=== PATIENT | female | born 1975 | race African-American/Black ===

== ENCOUNTER → 2018-08-20 | Outpatient (CLI) | payer OTHER ==
--- NOTE | 2018-08-20 11:15 | RAD ---
Indication:Dysfunctional uterine bleeding TECHNIQUE: Grayscale, color Doppler and spectral waveform images of the pelvis obtained. COMPARISON: None FINDINGS: Uterus is anteverted and measures 11.4 x 4.3 x 5.9 cm (longitudinal, AP, transverse). Endometrial stripe measures 1 cm and is within normal limits. 2.6 x 2.6 x 3.6 cm isoechoic masslike lesion is seen in the posterior uterine body most likely a fibroid. Left ovary measures 2.6 x 3.5 x 3.2 cm with a single septated anechoic lesion measuring 1.7 x 1.0 x 1.5 cm likely minimally complicated cyst. Left ovary shows blood flow. Right ovary measures 1.5 x 2.5 x 2.4 cm and shows blood flow. Trace amount of free pelvic fluid. IMPRESSION: 1. Posterior uterine body fibroid. 2. Endometrial stripe measures 1 cm in thickness. Electronically signed by: Matt Mena DO (08/20/2018 11:13 AM) [id number]
== END | disposition home or self-care (01) ==
LOC: US 09:46
PROVIDERS: ATTEND Nurse Practitioner Family
DX: D25.9 Leiomyoma of uterus, unspecified (principal)
CPT/HCPCS: 76830; 76856

== ENCOUNTER 2020-10-08 20:38 | Emergency (ER) | payer OTHER ==
[~2020-10-08] VITALS: Ht 162.6 cm; Wt 120.0 kg
[2020-10-08 20:38] VITALS: BP 168/80
--- NOTE | 2020-10-08 21:29 | PHYS DOC ---
Past History Past Medical History: No Pertinent History Past Surgical History: Tubal ligation, Other Smoking: Non-smoker Alcohol Use: None Drug Use: None Adult General Chief Complaint Chief Complaint: FLANK PAIN HPI HPI Patient is a 45-year-old female with a past medical history significant for renal stones who presents with a chief complaint of flank pain. States that it started earlier in the day, is sharp in nature, 7 out of 10 with no radiation and no associated nausea or vomiting. Denies any recent illnesses, fevers, chest pain, shortness of breath dysuria, hematuria or blood in the stool. Review of Systems Review of Systems Review of systems otherwise unremarkable except noted in HPI Allergies Allergies Allergies Coded Allergies Type Severity Reaction Last Updated Verified No Known Drug Allergies 11/01/13 No Physical Exam Physical Exam Constitutional: Well developed, well nourished, no acute distress, non-toxic appearance. [] HENT: Normocephalic, atraumatic, bilateral external ears normal, oropharynx moist, no oral exudates, nose normal. [] Cardiovascular:Heart rate regular rhythm, no murmur [] Lungs & Thorax: Bilateral breath sounds clear to auscultation [] Abdomen: Bowel sounds normal, soft, no tenderness, no masses, no pulsatile masses. [] Skin: Warm, dry, no erythema, no rash. [] Back: No tenderness, no CVA tenderness. [] Extremities: No tenderness, no cyanosis, no clubbing, ROM intact, no edema. [] Neurologic: Alert and oriented X 3, normal motor function, normal sensory function, no focal deficits noted. [] Psychologic: Affect normal, judgement normal, mood normal. [] EKG EKG [] Radiology/Procedures Radiology/Procedures []Exam: CT of abdomen and pelvis without contrast INDICATION: Flank pain TECHNIQUE: Sequential axial images through the abdomen and pelvis obtained wit hout IV contrast. Sagittal and coronal reformatted images were reconstructed from the axial data and reviewed. Comparisons: None FINDINGS: Heart size is normal. No pericardial effusion. Visualized lung bases are clear. No pleural effusion. Evaluation of solid organs is limited secondary to noncontrast technique. Liver, spleen, pancreas, gallbladder and adrenals are unremarkable. No perinephric inflammation. Mild left-sided hydronephrosis. No renal or ureteral calculi are identified. Bladder is decompressed not well evaluated. Uterus is not enlarged. No abnormal adnexal mass. Large and small bowel are unremarkable. Appendix is normal. No free abdominal air or fluid. No obstruction. Abdominal aorta has a normal course and caliber. No enlarged intra-abdominal lymph nodes are identified. No suspicious osseous lesions or acute fractures. IMPRESSION: 1. Mild left-sided hydronephrosis and hydroureter without obstructing stone or lesion identified. Findings could relate to stricture. 2. No renal or ureteral calculi. No evidence for obstructive uropathy. Heart Score C/O Chest Pain: No Risk Factors: Risk Factors: DM, Current or recent (<one month) smoker, HTN, HLP, family history of CAD, obesity. Risk Scores: Risk Factors: DM, Current or recent (<one month) smoker, HTN, HLP, family history of CAD, obesity. Course & Med Decision Making Course & Med Decision Making Patient is a 45-year-old female who presents with flank pain Vital signs not concerning. Physical exam noted above. Laboratory analysis notable for hematuria. CT notable for mild hydronephrosis/hydroureter without stone noted. Discussed all findings with patient including chronic urinary issues such as stricture versus a passed kidney stone. Advised on pain control at home. Advised to follow-up first thing tomorrow with primary care physician and discussed the need for urology follow-up. Gave strict return precautions to the ED. Patient grateful, verbalized understanding and agreed with plan of discharge. [] Dragon Disclaimer Dragon Disclaimer This electronic medical record was generated, in whole or in part, using a voice recognition dictation system. Departure Departure: Impression: Primary Impression: Flank pain Additional Impressions: Hydronephrosis Hematuria Urinary tract infection Disposition: 01 DC HOME SELF CARE/HOMELESS Condition: GOOD Referrals: KEYUR CUETO (PCP) Patient Instructions: Hematuria, Adult, Hydronephrosis Additional Instructions: Please read all of the attached information. Your laboratory analysis was not concerning. Your urinalysis had some blood in your CAT scan did not show any obstructing kidney stones but did show evidence of possible urinary stricture or possibly a passed stone. Please call your primary care physician first thing in the morning to discuss your ED visit and set up a follow-up as soon as you can with them, preferably this week and discussed the need for a urology consult. Please come back to the ED with new or concerning symptoms as discussed. Scripts Nitrofurantoin Monohyd/M-Cryst (MACROBID 100 MG CAPSULE) 100 Mg Capsule 1 CAP PO BID for UTI for 7 Days, #14 CAP 0 Refills Prov: ZAYDA SHAH MD 10/08/20 Cephalexin (CEPHALEXIN) 500 Mg Capsule 1 CAP PO BID for UTI for 5 Days, #10 CAP Prov: ZAYDA SHAH MD 10/08/20 Problem Qualifiers ZAYDA SHAH MD Oct 08, 2020 21:29
[2020-10-08 21:46] LABS: HEMOGLOBIN 10.2 g/dL (12.0-15.5); RED BLOOD COUNT 4.05 x10^6/uL (3.50-5.40); RED CELL DISTRIBUTION WIDTH 16.8 % (11.5-14.5); WHITE BLOOD COUNT 7.2 x10^3/uL (4.0-11.0)
[2020-10-08 21:49] LABS: CALCIUM 8.5 mg/dL (8.5-10.1); CREATININE 0.8 mg/dL (0.6-1.0); GFR 94.7; POTASSIUM 3.5 mmol/L (3.5-5.1)
[2020-10-08 21:58] LABS: BILIRUBIN,URINE NEG (NEG); CLARITY,URINE HAZY; COLOR,URINE YELLOW; GLUCOSE,URINE NEG (NEG)
[2020-10-08 21:59] LABS: BACTERIA,URINE FEW /HPF (0-FEW); NITRITE,URINE NEG (NEG); SQUAMOUS EPITHELIAL CELL,UR FEW /LPF; UROBILINOGEN,URINE 0.2 mg/dL (0.2 mg/dL); WBC,URINE OCC /HPF (0-4)
--- NOTE | 2020-10-08 22:44 | RAD ---
Exam: CT of abdomen and pelvis without contrast INDICATION: Flank pain TECHNIQUE: Sequential axial images through the abdomen and pelvis obtained without IV contrast. Sagit deana and coronal reformatted images were reconstructed from the axial data and reviewed. Comparisons: None FINDINGS: Heart size is normal. No pericardial effusion. Visualized lung bases are clear. No pleural effusion. Evaluation of solid organs is limited secondary to noncontrast technique. Liver, spleen, pancreas, gallbladder and adrenals are unremarkable. No perinephric inflammation. Mild left-sided hydronephrosis. No renal or ureteral calculi are identif ied. Bladder is decompressed not well evaluated. Uterus is not enlarged. No abnormal adnexal mass. Large and small bowel are unremarkable. Appendix is normal. No free abdominal air or fluid. No obstru ction. Abdominal aorta has a normal course and caliber. No enlarged intra-abdominal lymph nodes are identified. No suspicious osseous lesions or acute fractures. IMPRESSION: 1. Mild left-sided hydronephrosis and hydroureter without obstructing stone or lesion identified. Fi ndings could relate to stricture. 2. No renal or ureteral calculi. No evidence for obstructive uropathy. Exposure: One or more of the following in the visualized dose reduction techniques were utilized for this examination: 1. Automated exposure control 2. Adjustment of the MA and/or KV according to patient size 3. Use of iterative of reconstructive technique Electronically signed by: Hue Schroeder MD (10/08/2020 10:42 PM) [facility]
[2020-10-08] MEDS ORDERED: CEPH500C PO (22:54)
[2020-10-08] MEDS ORDERED: NITR100C62 PO (23:03)
[2020-10-08] MEDS ORDERED: NITROFURANTOIN MONOHYD/M-CRYST 100 MG CAPSULE. PO ONE (23:30)
[2020-10-08] MEDS ORDERED: CEPHALEXIN 250 MG CAPSULE PO ONE (23:30)
== END 2020-10-08 23:08 | disposition home or self-care (01) ==
LOC: ER 20:38
DX: N39.0 Urinary tract infection, site not specified (principal); N13.30 Unspecified hydronephrosis; Z98.51 Tubal ligation status
CPT/HCPCS: 36415; 74176; 80048; 81001; 85027; 99284-25

== ENCOUNTER 2021-05-24 15:42 | Emergency (ER) | payer OTHER ==
[~2021-05-24] VITALS: Ht 162.6 cm; Wt 120.0 kg
[~2021-05-24 15:42] MED LIST: CEPH500C PO; NITR100C62 PO
[2021-05-24 15:59] VITALS: BP 185/105
--- NOTE | 2021-05-24 17:17 | PHYS DOC ---
Past History Past Medical History: Kidney Stones Additional Past Medical Histor: graves disease; anemia (VAISHALI BOLIVAR APRN) Past Surgical History: Tubal ligation, Other (VAISHALI BOLIVAR APRN) Smoking: Non-smoker Alcohol Use: None Drug Use: None (VAISHALI BOLIVAR APRN) General Adult EDM: Chief Complaint: NOSEBLEED HPI: HPI: Patient is a 45-year-old female who presents with nosebleed that started as afternoon. Patient denies any known trauma. Patient denies being on any blood thinners. Bleeding was controlled once arrived in the ER. Patient is reporting she feels weak. Patient is supposed to be been seen this week for possible infusions due to iron deficiency. Patient sees Dr. Blevins. Denies pain. Patient has a history of Graves', anemia. (VAISHALI BOLIVAR APRN) Review of Systems: Review of Systems: ROS At least 10 ROS systems have been reviewed and are negative except as documented in the HPI. General: Negative except as outlined in HPI above. Skin: Negative except as outlined in HPI above. HEENT: Negative except as outlined in HPI above. Neck: Negative except as outlined in HPI above. Respiratory: Negative except as outlined in HPI above.. Cardiovascular: Negative except as outlined in HPI above. Abdomen: Negative except as outlined in HPI above. : Negative except as outlined in HPI above. Back/MSK: Negative except as outlined in HPI above. Neuro: Negative except as outlined in HPI above. Psych: Negative except as outlined in HPI above. (VAISHALI BOLIVAR APRN) Allergies: Allergies: Allergies Coded Allergies Type Severity Reaction Last Updated Verified Penicillins Allergy Severe Swelling 10/08/20 Yes (VAISHALI BOLIVAR APRN) Physical Exam: PE: Constitutional: Well developed, well nourished, no acute distress, non-toxic appearance. [] HENT: Normocephalic, atraumatic, bilateral external ears normal, oropharynx moist, no oral exudates, blood coming from right nare Eyes: PERRLA, EOMI, conjunctiva normal, no discharge. [] Neck: Normal range of motion, no tenderness, supple, no stridor. [] Cardiovascular:Heart rate regular rhythm, no murmur [] Lungs & Thorax: Bilateral breath sounds clear to auscultation [] Abdomen: Bowel sounds normal, soft, no tenderness, no masses, no pulsatile masses. [] Skin: Warm, dry, no erythema, no rash. [] Back: No tenderness, no CVA tenderness. [] Extremities: No tenderness, no cyanosis, no clubbing, ROM intact, no edema. [] Neurologic: Alert and oriented X 3, normal motor function, normal sensory function, no focal deficits noted. [] Psychologic: Affect normal, judgement normal, mood normal. [] (VAISHALI BOLIVAR APRN) Current Patient Data: Vital Signs: Vital Signs Date Time Temp Pulse Resp B/P (MAP) Pulse Ox O2 Delivery O2 Flow Rate FiO2 05/24/21 15:59 89 18 185/105 (131) 99 (VAISHALI BOLIVAR APRN) EKG: EKG: Sinus rhythm. Heart rate 65 bpm. No STEMI. [] (VAISHALI BOLIVAR APRN) Radiology/Procedures: Radiology/Procedures: [] (VAISHALI BOLIVAR APRN) Heart Score: C/O Chest Pain: No Risk Factors: Risk Factors: DM, Current or recent (<one month) smoker, HTN, HLP, family history of CAD, obesity. Risk Scores: Score 0 - 3: 2.5% MACE over next 6 weeks - Discharge Home Score 4 - 6: 20.3% MACE over next 6 weeks - Admit for Clinical Observation Score 7 - 10: 72.7% MACE over next 6 weeks - Early Invasive Strategies (VAISHALI BOLIVAR APRN) Course & Med Decision Making: Course & Med Decision Making Pertinent Labs and Imaging studies reviewed. (See chart for details) [] 45-year-old female presents with a nosebleed. Patient was complaining of weakness. Work-up in ER consisted of EKG, labs, urinalysis. Patient is currently seeing Dr. Blevins and is supposed to start iron infusions next we ek. All labs unremarkable. Discussed results with patient. Advised patient that she should call Dr. Blevins tomorrow make a follow-up appointment for further management. Gave instructions on at home care for bloody nose and return precautions. Patient verbalizes she understands discharge instructions. Patient is hemodynamically stable upon disposition and bleeding is controlled. (VAISHALI BOLIVAR APRN) Dragon Disclaimer: Dragon Disclaimer: This electronic medical record was generated, in whole or in part, using a voice recognition dictation system. (VAISHALI BOLIVAR APRN) Attending Co-Sign The patient was seen and interviewed as well as examined at the bedside. The chart was reviewed. The case was discussed. Agree with the plan of care. (JUAN DIEGO SHOEMAKER DO) Departure Departure: Impression: Primary Impression: Epistaxis Disposition: HOME / SELF CARE / HOMELESS Condition: STABLE Referrals: KEYUR CUETO-Rommel (PCP) Patient Instructions: Nosebleed, [id number] Additional Instructions: You are seen in the emergency room for a nosebleed. Your bleeding was controlled upon arrival. Please call your PCP, Dr. Blevins, for a follow-up appointment for tomorrow for further management. If your nose starts bleeding at home, you will want to hold pressure for at least 20 minutes. You can repeat this process one other time. If you are still not able to control the bleeding please return to the ER at that time. Please return to the emergency room if you have any worsening symptoms or concerns. EMERGENCY DEPARTMENT GENERAL DISCHARGE INSTRUCTIONS Thank you for coming to [facility] (ED) today and trusting us with you care. We trust that you had a positivie experience in our Emergency Department. If you wish to speak to the department management, you may call the director at [phone]. YOUR FOLLOW UP INSTRUCTIONS ARE FOLLOWS: 1. Do you have a private Doctor? If you do not have a private doctor, please ask for a resource list of physicians or clinics that may be able to assist you with follow up care. 2. The Emergency Physician has interpreted your x-rays. The X-Ray specialist will also review them. If there is a change in the findings, you will be notified in 48 hours when at all possible. 3. A lab test or culture has been done, your results will be reviewed and you will be notified if you need a change in treatment. ADDITIONAL INSTRUCTIONS AND INFORMATION: 1. Your care today has been supervised by a physician who is specially trained in emergency care. Many problems require more than one evaluation for a complete diagnosis and treatment. We recommend that you schedule your follow up appointment as recommended to ensure complete treatment of you illness or injury. If you are unable to obtain follow up care and continue to have a problem, or if your condition worsens, we recommend that you return to the ED. 2. We are not able to safely determine your condition over the phone nor are we able to give sound medical advice over the phone. For these safety reasons, if you call for medical advice we will ask you to come to the ED for further evaluation. 3. If you have any questions regarding these discharge instructions please call the ED at [phone]. SAFETY INFORMATION: In the interest of safety, wellness, and injury prevention; we encourage you to wear your sealbelt, if you smoke; quite smoking, and we encourage family to use a protective helmet for bicycling and other sporting events that present an increased risk for head injury. IF YOUR SYMPTOMS WORSEN OR NEW SYMPTOMS DEVELOP, OR YOU HAVE CONCERNS ABOUT YOUR CONDITION; OR IF YOUR CONDITION WORSENS WHILE YOU ARE WAITING FOR YOUR FOLLOW UP APPOINTMENT; EITHER CONTACT YOUR PRIMARY CARE DOCTOR, THE PHYSICIAN WHOSE NAME AND NUMBER YOU WERE [place], OR RETURN TO THE ED IMMEDIATELY. VAISHALI BOLIVAR APRN May 24, 2021 17:17 JUAN DIEGO SHOEMAKER DO May 28, 2021 10:08
[2021-05-24 17:18] LABS: CALCIUM 8.8 mg/dL (8.5-10.1); CREATININE 0.6 mg/dL (0.6-1.0); POTASSIUM 3.8 mmol/L (3.5-5.1)
[2021-05-24 17:20] LABS: BASO # 0.1 x10^3/uL (0.0-0.2); BASO % 1 % (0-3); EOS # 0.3 x10^3/uL (0.0-0.7); EOS % 5 % (0-3); HEMATOCRIT 35.4 % (36.0-47.0); HEMOGLOBIN 11.2 g/dL (12.0-15.5); LYMPH # 2.3 x10^3/uL (1.0-4.8); LYMPH % 36 % (24-48); MEAN CORPUSCULAR HEMOGLOBIN 25 pg (25-35); MEAN CORPUSCULAR HGB CONC 32 g/dL (31-37); MEAN CORPUSCULAR VOLUME 79 fL (79-100); MONO # 0.3 x10^3/uL (0.0-1.1); MONO % 5 % (0-9); NEUT # 3.4 x10^3uL (1.8-7.7); NEUT % 53 % (31-73); PLATELET COUNT 335 x10^3/uL (140-400); RED BLOOD COUNT 4.48 x10^6/uL (3.50-5.40); RED CELL DISTRIBUTION WIDTH 18.9 % (11.5-14.5); WHITE BLOOD COUNT 6.5 x10^3/uL (4.0-11.0)
--- NOTE | 2021-05-24 17:35 | EKG ---
[address] [id number] Test Date: 2021-05-24 Test Time: 16:14:36 Pat Name: JERARDO CARNEY Department: Room: Gender: F Academic Adviser: MIGUE : [id number] Requested By: VAISHALI BOLIVAR Order Number: [id number] Reading MD: Raymond West Measurements Intervals [place] Rate: 65 P: 48 IN: 134 QRS: 28 QRSD: 94 T: 22 QT: 416 QTc: 433 Interpretive Statements SINUS RHYTHM Electronically Signed On 05-28-2021 10:32:31 BOOKS BINDER by Raymond West
[2021-05-24] MEDS ORDERED: OXYMETAZOLINE 0.05% NASAL SPRAY 30ML BOTTLE. NS ONE (18:00)
== END 2021-05-24 17:59 | disposition home or self-care (01) ==
LOC: ER 15:42
DX: R04.0 Epistaxis (principal); Z87.442 Personal history of urinary calculi; Z88.0 Allergy status to penicillin
CPT/HCPCS: 36415; 80048; 85025; 93005; 99284